=== PATIENT | male | born 1985 | race Native Hawaiian/Other Pacific Islander ===

== ENCOUNTER 2021-11-18 18:53 | Emergency (ER) | payer OTHER ==
[~2021-11-18] VITALS: Ht 177.8 cm; Wt 65.8 kg
[2021-11-18 20:15] VITALS: BP 128/71; TEMP 99.1
== END 2021-11-18 20:20 | disposition home or self-care (01) ==
LOC: ED 18:53
DX: J06.9 Acute upper respiratory infection, unspecified (principal); U07.1 COVID-19; R50.9 Fever, unspecified; F17.210 Nicotine dependence, cigarettes, uncomplicated
CPT/HCPCS: 87502; 87635; 87651; 99283; U0003